=== PATIENT | female | born 1975 | race African-American/Black ===

== ENCOUNTER 2016-06-03 08:25 | Inpatient (IN) | payer OTHER ==
[~2016-06-03] VITALS: Ht 175.3 cm; Wt 104.3 kg
--- NOTE | ~2016-06-03 | EKG ---
[address] [address] ELECTROCARDIOGRAM REPORT Name: TORIE RAMOS Room #: 403-P ADM IN M.R.#: [id number] Admission: 06/03/16 Attend Phys: Noam Gramajo MD Discharge: Date of : 77 Report #: [id number] THIS REPORT FOR: //name// [facility] ED Test Date: 2016-06-03 Test Time: 09:58:27 Pat Name: TORIE RAMOS Department: Room: 403 Gender: F [employer]: MZOOMarcos : 1975 Requested By: Katie Zeng Order Number: [id number] MD: Ramez Patel Measurements Intervals [place] Rate: 113 P: 56 DC: 178 QRS: 49 QRSD: 93 T: 2 QT: 318 QTc: 436 Interpretive Statements Sinus tachycardia Probable left atrial enlargement Baseline wander in lead(s) V6 No previous ECG available for comparison Electronically Signed On 06-03-2016 18:21:48 CDT by Ramez Patel [email or web address] <ELECTRONICALLY SIGNED> By: Ramez Patel MD 06/03/16 1821 [id number] Ramez Patel MD /AMI
[2016-06-03 08:32] VITALS: BP 129/73
[2016-06-03 08:56] LABS: HEMATOCRIT 29.8 % (37.0-47.0); HEMOGLOBIN 9.4 gm/dL (12.0-15.0); MCH 20.2 pg (26.0-34.0); MCHC 31.7 g/dL (28.0-37.0); MCV 63.6 fL (80.0-100.0); PLATELET COUNT 265 thou/uL (150-400); RBC 4.68 mil/uL (4.20-5.00); WBC 5.7 thou/uL (4.0-11.0)
[2016-06-03 08:57] LABS: MANUAL DIFF YES
[2016-06-03 09:06] LABS: CALCIUM 8.6 mg/dL (8.5-10.1); CREATININE 1.2 mg/dL (0.6-1.3); POTASSIUM 3.3 mmol/L (3.5-5.1)
[2016-06-03 09:33] LABS: ABSOLUTE NEUTROPHILS 4.9 thou/uL (1.4-8.2); TOTAL CELL COUNT 100
[2016-06-03 09:34] LABS: ANISOCYTOSIS 1+; MICROCYTES 1+
[2016-06-03 11:14] VITALS: BP 125/83
[2016-06-03 16:53] VITALS: BP 112/72
[2016-06-03 19:34] VITALS: BP 128/79
[2016-06-04 01:10] VITALS: BP 122/82
[2016-06-04 05:48] LABS: ALBUMIN 2.3 g/dL (3.4-5.0); CALCIUM 8.6 mg/dL (8.5-10.1); MAGNESIUM 2.5 mg/dL (1.8-2.4); POTASSIUM 3.5 mmol/L (3.5-5.1); TOTAL BILIRUBIN 0.6 mg/dL (<0.1-1.0)
[2016-06-04 08:00] VITALS: BP 130/87
[2016-06-04 11:54] LABS: HEMATOCRIT 25.8 % (37.0-47.0); HEMOGLOBIN 8.1 gm/dL (12.0-15.0); MCH 20.1 pg (26.0-34.0); MCHC 31.5 g/dL (28.0-37.0); MCV 63.9 fL (80.0-100.0); RBC 4.04 mil/uL (4.20-5.00); RDW 20.2 % (10.5-14.5); WBC 8.3 thou/uL (4.0-11.0)
[2016-06-04 12:25] LABS: % SATURATION 6 % (20-39); IRON 14 ug/dL (50-170); TIBC 246 ug/dL (250-450); UIBC 232 ug/dL
[2016-06-04 12:53] LABS: FOLIC ACID 11.2 ng/mL (8.6-58.9)
[2016-06-04 16:00] VITALS: BP 139/82
[2016-06-04 20:30] VITALS: BP 131/81; BP 135/89
[2016-06-05 04:36] VITALS: BP 140/75
[2016-06-05 05:13] LABS: HEMATOCRIT 23.7 % (37.0-47.0); HEMOGLOBIN 7.6 gm/dL (12.0-15.0); MCH 20.2 pg (26.0-34.0); MCHC 32.1 g/dL (28.0-37.0); MCV 62.8 fL (80.0-100.0); RBC 3.77 mil/uL (4.20-5.00); RDW 20.2 % (10.5-14.5); WBC 9.2 thou/uL (4.0-11.0)
[2016-06-05 08:00] VITALS: BP 144/87
[2016-06-05 12:27] LABS: HEMATOCRIT 24.9 % (37.0-47.0); HEMOGLOBIN 7.9 gm/dL (12.0-15.0)
[2016-06-05 16:00] VITALS: BP 143/83
[2016-06-05 20:00] VITALS: BP 138/83
[2016-06-06 04:00] VITALS: BP 143/74
[2016-06-06 08:00] VITALS: BP 152/81
[2016-06-06 10:04] LABS: HEMATOCRIT 26.4 % (37.0-47.0); HEMOGLOBIN 8.3 gm/dL (12.0-15.0); MCH 19.7 pg (26.0-34.0); MCHC 31.3 g/dL (28.0-37.0); MCV 62.8 fL (80.0-100.0); RBC 4.21 mil/uL (4.20-5.00); RDW 20.3 % (10.5-14.5); WBC 13.9 thou/uL (4.0-11.0)
[2016-06-06 16:00] VITALS: BP 140/94
[2016-06-06 19:31] VITALS: BP 138/88
[2016-06-07 03:42] VITALS: BP 140/80
[2016-06-07 06:43] LABS: HEMATOCRIT 26.2 % (37.0-47.0); HEMOGLOBIN 8.4 gm/dL (12.0-15.0); MCHC 31.9 g/dL (28.0-37.0); MCV 62.8 fL (80.0-100.0); RBC 4.18 mil/uL (4.20-5.00); RDW 20.7 % (10.5-14.5); WBC 18.5 thou/uL (4.0-11.0)
[2016-06-07 08:15] VITALS: BP 146/90
[2016-06-07 16:00] VITALS: BP 143/85
[2016-06-07 18:55] VITALS: BP 141/88
[2016-06-08 04:35] VITALS: BP 145/78
[2016-06-08 05:18] LABS: HEMATOCRIT 24.8 % (37.0-47.0); HEMOGLOBIN 7.8 gm/dL (12.0-15.0); MCHC 31.7 g/dL (28.0-37.0); MCV 63.2 fL (80.0-100.0); PLATELET COUNT 437 thou/uL (150-400); RBC 3.92 mil/uL (4.20-5.00); WBC 14.3 thou/uL (4.0-11.0)
[2016-06-08 05:23] LABS: MANUAL DIFF YES
[2016-06-08 05:36] LABS: CALCIUM 8.1 mg/dL (8.5-10.1); CREATININE 0.9 mg/dL (0.6-1.3); POTASSIUM 3.2 mmol/L (3.5-5.1)
[2016-06-08 08:59] VITALS: BP 150/93
[2016-06-08 09:41] LABS: ABSOLUTE NEUTROPHILS 8.7 thou/uL (1.4-8.2); ANISOCYTOSIS 2+; ATYPICAL LYMPHS 2 %; METAMYELOCYTES 1 %; NUCLEATED RBCS 1 /100WBC; TOTAL CELL COUNT 100
[2016-06-08 09:42] LABS: HYPOCHROMASIA 2+; MICROCYTES 2+; OVALOCYTES 1+; POLYCHROMASIA OCCASIONAL
[2016-06-08 10:34] LABS: CALCIUM 8.4 mg/dL (8.5-10.1); CREATININE 0.9 mg/dL (0.6-1.3); POTASSIUM 3.7 mmol/L (3.5-5.1)
[2016-06-08] MEDS ORDERED: VENTOLIN HFA 1818 GM INH (14:33)
[2016-06-08] MEDS ORDERED: IRON325 PO (14:34)
[2016-06-08] MEDS ORDERED: CEFDINIR300 MG PO (14:34)
[2016-06-08] MEDS ORDERED: MUCINEX TA600 MG/TA1 PO (14:35)
[2016-06-08] MEDS ORDERED: PROTONIX40 M1 PO (14:35)
[2016-06-08] MEDS ORDERED: PREDNISONE 10 M10 MG PO (14:36)
[2016-06-08 14:51] VITALS: BP 150/93
[2016-06-08 22:06] LABS: INFLUENZA B Negative (Negative); METAPNEUMOVIRUS Negative (Negative)
== END 2016-06-08 17:51 | disposition home or self-care (01) | DRG 871 ==
LOC: ER 08:25 → EROBS 09:17 → 4N 09:17
PROVIDERS: Emergency Medicine; Family Medicine; Internal Medicine; Nurse Practitioner; Nurse Practitioner Acute Care
DX: A41.9 Sepsis, unspecified organism (principal); J18.9 Pneumonia, unspecified organism; E43 Unspecified severe protein-calorie malnutrition; E87.1 Hypo-osmolality and hyponatremia; D50.9 Iron deficiency anemia, unspecified; E87.6 Hypokalemia; E66.9 Obesity, unspecified; Z68.33 Body mass index [BMI] 33.0-33.9, adult
CPT/HCPCS: 10790

== ENCOUNTER → 2020-03-25 | Outpatient (CLI) | payer OTHER ==
[~2020-03-25] MED LIST: CEFDINIR300 MG PO; IRON325 PO; MUCINEX TA600 MG/TA1 PO; PREDNISONE 10 M10 MG PO; PROTONIX40 M1 PO; VENTOLIN HFA 1818 GM INH
== END ==
LOC: RAD 15:03 → BC 15:03
PROVIDERS: ATTEND Family Medicine
DX: Z12.31 Encounter for screening mammogram for malignant neoplasm of breast (principal)

== ENCOUNTER → 2020-03-31 | Outpatient (CLI) | payer OTHER | LOC: ULTRA 03-27 16:00 | PROVIDERS: ATTEND Family Medicine | DX: N60.02 Solitary cyst of left breast (principal); R92.2 Inconclusive mammogram ==

== ENCOUNTER → 2020-12-07 | Outpatient (CLI) | payer OTHER | LOC: RAD 14:09 → ULTRA 14:09 | PROVIDERS: ATTEND Family Medicine | DX: N63.11 Unspecified lump in the right breast, upper outer quadrant (principal); N60.02 Solitary cyst of left breast ==